=== PATIENT | male | born 1990 | race African-American/Black ===

== ENCOUNTER 2018-12-27 14:54 | Emergency (ER) | payer MEDICAID ==
[~2018-12-27] VITALS: Ht 195.6 cm; Wt 95.0 kg
[2018-12-27 19:18] VITALS: BP 138/84
== END 2018-12-27 22:48 | disposition home or self-care (01) ==
LOC: ED 18:55
DX: R11.2 Nausea with vomiting, unspecified (principal); R10.84 Generalized abdominal pain; R19.7 Diarrhea, unspecified; F32.9 Major depressive disorder, single episode, unspecified
CPT/HCPCS: 36415; 74021; 80053; 83690; 85025; 96361; 96372; 96374; 96375; 99284; C9113; J1885; J2405; J2550; J3486; J3490; J7030; Q0162

== ENCOUNTER 2019-05-07 19:39 | Emergency (ER) | payer BC, MEDICAID ==
[~2019-05-07] VITALS: Ht 195.6 cm; Wt 100.4 kg
[~2019-05-07 19:39] MED LIST: BACL20TA PO; ESCI5TAB PO; GABA300C10 PO; IBUP100T9 PO
[2019-05-07 19:43] VITALS: BP 118/60
[2019-05-07] MEDS ORDERED: AMOXICILLIN/CLAV 875-125MG TABLET PO STA (20:46)
[2019-05-07] MEDS ORDERED: AZITHROMYCIN 500 MG TABLET ONE (20:51)
[2019-05-07] MEDS ORDERED: CEFTRIAXONE 250 MG ONE (20:51)
[2019-05-07 20:52] LABS: MICROSCOPIC NOT IND
[2019-05-07] MEDS ORDERED: LIDOCAINE-MPF 1%, 5ML ONE (20:52)
[2019-05-07 20:57] LABS: CULTURE INDICATED? NO
[2019-05-07] MEDS ORDERED: AMOXICILLIN/CLAV 875-125MG TABLET ONE (20:58)
[2019-05-07] MEDS ORDERED: CEFTRIAXONE 250 MG IM ONE (21:00)
[2019-05-07] MEDS ORDERED: AZITHROMYCIN 500 MG TABLET PO ONE (21:00)
--- NOTE | 2019-05-07 22:05 | NUR ---
CARE ASSUMED FOR DC. PT DC'D HOME WITH RX X 2 AND UNDERSTANDING OF INSTRUCTIONS. PT TO DC DESK WITH FAMILY, GAIT STEADY.
== END 2019-05-07 22:08 | disposition home or self-care (01) ==
LOC: ED 20:22
DX: M54.5 Low back pain (principal); M54.6 Pain in thoracic spine; A56.8 Sexually transmitted chlamydial infection of other sites; A54.9 Gonococcal infection, unspecified
CPT/HCPCS: 81003; 87491; 87591; 96372; 99283; J0696

== ENCOUNTER 2019-06-27 12:19 | Emergency (ER) | payer MEDICAID ==
[~2019-06-27] VITALS: Ht 195.6 cm; Wt 102.2 kg
[2019-06-27 12:36] VITALS: BP 107/66
[2019-06-27] MEDS ORDERED: METHOCARBAMOL 750 MG TABLET ONE (13:25)
[2019-06-27] MEDS ORDERED: KETOROLAC 30 MG/1 ML ONE (13:25)
[2019-06-27] MEDS ORDERED: KETOROLAC 30 MG/1 ML IM ONE (13:30)
[2019-06-27] MEDS ORDERED: METHOCARBAMOL 500 MG TABLET PO ONE (13:30)
--- NOTE | 2019-06-27 13:58 | NUR ---
MEDS PER AUG CHIDI XR RESTULS.
== END 2019-06-27 14:16 | disposition home or self-care (01) ==
LOC: ED 14:05
DX: G89.29 Other chronic pain (principal); M54.2 Cervicalgia; G89.11 Acute pain due to trauma; M54.6 Pain in thoracic spine
CPT/HCPCS: 72050; 72072; 96372; 99283; J1885

== ENCOUNTER 2020-02-28 14:46 | Emergency (ER) | payer MEDICAID, OTHER ==
[~2020-02-28] VITALS: Ht 195.6 cm; Wt 108.7 kg
--- NOTE | 2020-02-28 14:57 | NUR ---
[facility], PT IN [facility]. PT WITH CP BEGINNING APPROX 1 HR AGO, EKG AT ASSISTED SHOWING ST ELEVATION, PT RECIEVED 325 ASA, PT NOW STATES PAIN 4/10. REPEAT EKG ON ARRIVAL LESS ELEVATION NOTED. PT TO CARD MONITOR, BP, CONT PULSE OX. ERMD IN TO EVAL PT AND EKG, NO CODE CARDIAC CALLED AT THIST TIME
[2020-02-28 15:39] LABS: BASOPHILS # (AUTO) 0.01 x10^3/uL (0-0.1); BASOPHILS % (AUTO) 0 % (0-1); EOSINOPHILS # (AUTO) 0.09 x10^3/uL (0-0.4); EOSINOPHILS % (AUTO) 2 % (1-7); LYMPHOCYTES # (AUTO) 1.51 x10^3/uL (1-3.4); LYMPHOCYTES % (AUTO) 33 % (22-44); MD NO; MEAN CORPUSCULAR HEMOGLOBIN 28.5 pg (27.5-34.5); MEAN CORPUSCULAR HGB CONC 31.3 g/dL (33.2-36.2); MEAN CORPUSCULAR VOLUME 91.2 fL (81-97); MEAN PLATELET VOLUME 8.8 fL (7.4-10.4); MONOCYTES # (AUTO) 0.52 x10^3/uL (0.2-0.8); MONOCYTES % (AUTO) 11 % (2-9); NEUTROPHILS % (AUTO) 53 % (42-75); PLATELET COUNT 152 x10^3/uL (130-400); RED BLOOD COUNT 4.59 x10^6/uL (4.38-5.82); RED CELL DISTRIBUTION WIDTH 15.3 % (9.4-14.8)
[2020-02-28 15:50] LABS: ALBUMIN 3.3 g/dL (3.4-5.0); ANION GAP 3 mmol/L (5-15); CALCIUM 8.8 mg/dL (8.5-10.1); CHLORIDE 109 mmol/L (98-107); CREATININE 0.99 mg/dL (0.7-1.3)
[2020-02-28 15:54] LABS: TROPONIN I < 0.015 ng/mL (0.000-0.045)
[2020-02-28 16:17] VITALS: BP 114/64
--- NOTE | 2020-02-28 16:18 | NUR ---
PT RESTING ON GUCLEO AT THIS TIME, DEPUTY IN RM. VSS, NAD NOTED
[2020-02-28] MEDS ORDERED: NEOSPORIN OINT. PKT 1 PACKET ONE (16:37)
== END 2020-02-28 17:28 | disposition home or self-care (01) ==
LOC: ED 15:31
DX: S61.012A Laceration without foreign body of left thumb without damage to nail, initial encounter (principal); R07.89 Other chest pain; R10.84 Generalized abdominal pain; R94.31 Abnormal electrocardiogram [ECG] [EKG]; I21.9 Acute myocardial infarction, unspecified; X58.XXXA Exposure to other specified factors, initial encounter; Y93.89 Activity, other specified; Y92.89 Other specified places as the place of occurrence of the external cause; Y99.8 Other external cause status
CPT/HCPCS: 36415; 71045; 80048; 82040; 84484; 85025; 85379; 93005; 99285